=== PATIENT | female | born 2000 | race Caucasian/White ===

== ENCOUNTER 2024-05-01 18:34 | Inpatient (IN) | payer BC ==
[2024-05-01] MEDS ORDERED: Acetaminophen 500 MG TAB ONE (19:39)
[2024-05-01] MEDS ORDERED: Sodium Chloride 0.9% 100 ML ONE (19:39)
[2024-05-01] MEDS ORDERED: cefTRIAXone (ROCEPHIN) 2 GM VIAL ONE (19:39)
[2024-05-01 20:07] LABS: #Basophils 0.05 10x3/uL (0.0-0.2); %Basophils 0.5 % (0.0-1.0); %Eosinophils 0.3 % (0.0-10.0); %Lymphocytes 16.5 % (21.0-51.0); %Monocytes 6.4 % (0.0-10.0); Hemoglobin 10.4 g/dL (12.0-16.0); Mean Corpuscular HGB CONC 33.5 g/dL (32.0-36.0); Mean Corpuscular Volume 92.3 fL (78.0-98.0); Mean Platelet Volume 8.5 fL (7.4-10.4); Platelet Count 267 10x3/uL (130-400); RBC Distribution Width 13.8 % (11.5-14.5); Red Blood Cell (RBC) Count 3.36 mill/uL (4.20-5.40)
[2024-05-01 20:09] LABS: Pregnancy Test - Urine (BHCG) Negative (Negative); Pregu Control Background? CLEAR/WHITE (CLR/WHITE); Pregu Control Bar Appear? YES (CONTROL BAR); Specific Gravity 1.019 (1.002-1.036)
[2024-05-01 20:11] LABS: Bacteria/HPF 4+ HPF (None Seen); Bilirubin Negative (Negative); Blood, Urine Negative (Negative); CAUTI Indications for Culture Pelvic or flank pain; Clarity Clear (Clear); Glucose, Urine (Dipstick) Normal (Negative); Ketone, Urine 10 mg/dL (Negative); Leukocyte 75 Leu/uL (Negative); Nitrite 2+ (Negative); Protein, Urine (Dipstick) 10 mg/dL (Neg-Trace); RBC/HPF 0-3 HPF (0-3); Specific Gravity, Urine 1.019 (1.002-1.036); Urobilinogen Normal mg/dL (Less than 2); WBC/HPF 21-50 HPF (0-3); pH, Urine 5.5 (5.0-9.0)
[2024-05-01 20:14] LABS: Urine Culture Reflex Yes Yes
[2024-05-01 20:24] LABS: ALT (SGPT) 8 U/L (8-55); AST (SGOT) 17 U/L (5-34); Albumin 4.3 g/dL (3.5-5.0); Alkaline Phosphatase 57 U/L (40-110); Anion Gap 15 mmol/L (10-20); BUN (Urea Nitrogen) 21 mg/dL (7.0-18.7); Bilirubin, Total 1.3 mg/dL (0.2-1.2); Calc. Creatinine Clearance 0 mL/min (70-130); Calcium 9.4 mg/dL (7.8-10.44); Carbon Dioxide 18 mmol/L (22-29); Chloride 107 mmol/L (98-107); Estimated GFR 47; Globulin 3.9 g/dL (2.4-3.5); Glucose 88 mg/dL (70-105); Potassium 4.7 mmol/L (3.5-5.1); Protein, Total 8.2 g/dL (6.0-8.3); Sodium 135 mmol/L (136-145)
[2024-05-01] MEDS ORDERED: Morphine 4 MG/ML VIAL ONE (21:24)
[2024-05-01] MEDS ORDERED: Ondansetron PF 4 MG/2 ML Vial ONE (21:24)
[2024-05-02 00:36] VITALS: BMI 26.9
[2024-05-02] MEDS ORDERED: Acetaminophen 650 MG Suppository PR PRN ×2 (01:02→05:47)
[2024-05-02] MEDS ORDERED: SUMAtriptan Succinate 50 MG TAB PO PRN (01:04)
[2024-05-02] MEDS: Ondansetron PF 4 MG/2 ML Vial ONE (01:10)
[2024-05-02] MEDS: Acetaminophen 325 MG TAB ONE ×2 (01:15→06:38)
[2024-05-02] MEDS: Cefepime 1 GM in Sodium Chloride 0.9% 100 ML IVPB SCH (02:17)
[2024-05-02] MEDS: Sodium Chloride 0.9% 1,000 ML IV SCH (02:17)
[2024-05-02 04:48] LABS: #Basophils 0.04 10x3/uL (0.0-0.2); #Eosinphils Less than 0.03 10x3/uL (0.0-0.7); %Basophils 0.5 % (0.0-1.0); %Eosinophils 0.1 % (0.0-10.0); %Lymphocytes 11.6 % (21.0-51.0); %Monocytes 9.4 % (0.0-10.0); %Neutrophils 78.1 % (42.0-75.0); Hematocrit 28.3 % (36.0-47.0); Hemoglobin 9.4 g/dL (12.0-16.0); Mean Corpuscular HGB CONC 33.2 g/dL (32.0-36.0); Mean Corpuscular Hemoglobin 31.2 pg (27.0-31.0); Mean Platelet Volume 8.7 fL (7.4-10.4); Platelet Count 222 10x3/uL (130-400); RBC Distribution Width 13.8 % (11.5-14.5); Red Blood Cell (RBC) Count 3.01 mill/uL (4.20-5.40)
[2024-05-02 05:14] LABS: Influenza A by NAA Not Detected (NotDetected); Influenza B by NAA Not Detected (NotDetected); SARS-CoV-2 NAA Rapid Test Not Detected (NotDetected)
[2024-05-02 05:45] LABS: Anion Gap 12 mmol/L (10-20); BUN (Urea Nitrogen) 21 mg/dL (7.0-18.7); Calc. Creatinine Clearance 64 mL/min (70-130); Calcium 8.2 mg/dL (7.8-10.44); Carbon Dioxide 18 mmol/L (22-29); Chloride 111 mmol/L (98-107); Estimated GFR 44; Glucose 110 mg/dL (70-105); Magnesium 1.7 mg/dL (1.6-2.6); Potassium 4.3 mmol/L (3.5-5.1); Sodium 137 mmol/L (136-145)
[2024-05-02] MEDS: Ondansetron PF 4 MG/2 ML Vial IVP PRN (06:33)
[2024-05-02] MEDS: Acetaminophen 325 MG TAB PO PRN (06:37)
[2024-05-02] MEDS: Heparin 5,000 UNITS/ML VIAL SC SCH (08:34)
[2024-05-02] MEDS: Sodium Bicarbonate Tab 325 MG TAB PO SCH (08:35)
[2024-05-02] MEDS: Amlodipine 5 MG TAB PO SCH (08:35)
[2024-05-02] MEDS: Magnesium Oxide 400 MG TAB PO SCH (08:35)
[2024-05-02] MEDS: Aspirin 81 mg Enteric Coated Tablet PO SCH (08:35)
[2024-05-02] MEDS: predniSONE 5 MG TAB PO SCH (08:36)
[2024-05-02] MEDS: Pantoprazole DR 40 MG TAB PO SCH (08:36)
[2024-05-02] MEDS ORDERED: Ondansetron ODT 4 MG TAB PO PRN (15:38)
[2024-05-02] MEDS: RIBOFLAVIN 100 MG PO SCH (18:09)
[2024-05-02] MEDS: TACROLIMUS 4 MG PO SCH (18:09)
[2024-05-02] MEDS ORDERED: NORETHINDRONE 0.35 MG PO SCH (21:00)
[2024-05-03 06:12] LABS: Anion Gap 10 mmol/L (10-20); BUN (Urea Nitrogen) 13 mg/dL (7.0-18.7); Calc. Creatinine Clearance 73 mL/min (70-130); Calcium 8.5 mg/dL (7.8-10.44); Carbon Dioxide 20 mmol/L (22-29); Chloride 112 mmol/L (98-107); Estimated GFR 51; Glucose 95 mg/dL (70-105); Magnesium 1.8 mg/dL (1.6-2.6); Potassium 4.7 mmol/L (3.5-5.1); Sodium 137 mmol/L (136-145)
[2024-05-03 06:25] LABS: #Basophils 0.03 10x3/uL (0.0-0.2); %Basophils 0.5 % (0.0-1.0); %Eosinophils 0.8 % (0.0-10.0); %Lymphocytes 23.4 % (21.0-51.0); Hematocrit 26.9 % (36.0-47.0); Hemoglobin 8.8 g/dL (12.0-16.0); Mean Corpuscular HGB CONC 32.7 g/dL (32.0-36.0); Mean Corpuscular Hemoglobin 31.2 pg (27.0-31.0); Mean Corpuscular Volume 95.4 fL (78.0-98.0); Mean Platelet Volume 8.9 fL (7.4-10.4); Platelet Count 190 10x3/uL (130-400); RBC Distribution Width 13.7 % (11.5-14.5); Red Blood Cell (RBC) Count 2.82 mill/uL (4.20-5.40)
[2024-05-03 12:08] VITALS: BP 121/81; TEMP 97.9
[2024-05-05 17:39] LABS: Tacrolimus 7.4 ng/mL (2.0-20.0)
== END 2024-05-03 12:19 | disposition home or self-care (01) | DRG 872 ==
LOC: ERS 18:34 → T4-A 23:32 → OBSVTOIN 05-02 15:06
PROVIDERS: ADMIT Internal Medicine; ATTEND Family Medicine
DX: A41.51 Sepsis due to Escherichia coli [E. coli] (principal); N17.9 Acute kidney failure, unspecified; T86.99 Other complications of unspecified transplanted organ and tissue; E87.20 Acidosis, unspecified; N39.0 Urinary tract infection, site not specified; G40.909 Epilepsy, unspecified, not intractable, without status epilepticus; I12.9 Hypertensive chronic kidney disease with stage 1 through stage 4 chronic kidney disease, or unspecified chronic kidney disease; D63.8 Anemia in other chronic diseases classified elsewhere; N18.30 Chronic kidney disease, stage 3 unspecified; Z92.25 Personal history of immunosuppression therapy
CPT/HCPCS: 36415; 80048; 80053; 80197; 81001; 81025; 83605; 83735; 85025; 87040; 87077; 87086; 87186; 96375; 96376; G0378; J0692; J0696; J2272; J2405; J7030; J7512

== ENCOUNTER 2024-07-13 04:08 | Inpatient (IN) | payer BC ==
[2024-07-13] MEDS ORDERED: Morphine 4 MG/ML VIAL ONE (04:30)
[2024-07-13] MEDS ORDERED: Ondansetron PF 4 MG/2 ML Vial ONE (04:31)
[2024-07-13 05:22] LABS: Mean Corpuscular HGB CONC 33.5 g/dL (32.0-36.0)
[2024-07-13 05:23] LABS: #Basophils 0.03 10x3/uL (0.0-0.2); #Eosinophils Less than 0.03 10x3/uL (0.0-0.7); %Basophils 0.3 % (0.0-1.0); %Lymphocytes 8.1 % (21.0-51.0); %Monocytes 5.3 % (0.0-10.0); %Neutrophils 85.9 % (42.0-75.0); Hematocrit 36.4 % (36.0-47.0); Hemoglobin 12.2 g/dL (12.0-16.0); Mean Corpuscular Hemoglobin 30.5 pg (27.0-31.0); Mean Platelet Volume 9.5 fL (7.4-10.4); Platelet Count 129 10x3/uL (130-400)
[2024-07-13 05:29] LABS: BHCG - Serum Negative (NEGATIVE); Pregs Control Background? CLEAR/WHITE (CLR/WHITE); Pregs Control Bar Appear? YES (CONTROL BAR)
[2024-07-13 05:36] LABS: ALT (SGPT) 10 U/L (8-55); AST (SGOT) 18 U/L (5-34); Albumin 3.7 g/dL (3.5-5.0); Alkaline Phosphatase 53 U/L (40-110); Anion Gap 14 mmol/L (10-20); BUN (Urea Nitrogen) 29 mg/dL (7.0-18.7); Bilirubin, Total 0.6 mg/dL (0.2-1.2); Calc. Creatinine Clearance 0 mL/min (70-130); Calcium 9.6 mg/dL (7.8-10.44); Carbon Dioxide 16 mmol/L (22-29); Chloride 110 mmol/L (98-107); Estimated GFR 42; Globulin 3.9 g/dL (2.4-3.5); Glucose 122 mg/dL (70-105); Potassium 4.5 mmol/L (3.5-5.1); Protein, Total 7.6 g/dL (6.0-8.3); Sodium 135 mmol/L (136-145)
[2024-07-13 05:44] LABS: Bacteria/HPF 4+ HPF (None Seen); Bilirubin Negative (Negative); Blood, Urine Negative (Negative); CAUTI Indications for Culture Pelvic or flank pain; Clarity Clear (Clear); Glucose, Urine (Dipstick) Normal (Negative); Ketone, Urine Negative (Negative); Leukocyte 25 Leu/uL (Negative); Nitrite Negative (Negative); Protein, Urine (Dipstick) Negative (Neg-Trace); RBC/HPF 0-3 HPF (0-3); Specific Gravity, Urine 1.014 (1.002-1.036); Urobilinogen Normal mg/dL (Less than 2)
[2024-07-13 05:49] LABS: Urine Culture Reflex Yes Yes
[2024-07-13] MEDS ORDERED: Promethazine HCl 25 MG/ML VIAL ONE (06:12)
[2024-07-13] MEDS ORDERED: Acetaminophen 500 MG TAB ONE (06:23)
[2024-07-13] MEDS ORDERED: Sodium Bicarb 50 MEQ/50 ML Abboject 8.4% SYRINGE ONE (07:04)
[2024-07-13] MEDS ORDERED: cefTRIAXone (ROCEPHIN) 1 GM VIAL ONE (07:04)
[2024-07-13] MEDS ORDERED: Sodium Chloride 0.9% 100 ML ONE (07:04)
[2024-07-13] MEDS ORDERED: cefTRIAXone (ROCEPHIN) 2 GM VIAL ONE (07:06)
[2024-07-13] MEDS: Lactated Ringer's 1,000 ML IV SCH (08:25)
[2024-07-13] MEDS ORDERED: Acetaminophen 650 MG Suppository PR PRN (09:07)
[2024-07-13] MEDS ORDERED: Senokot S 8.6-50 MG TAB PO PRN (09:07)
[2024-07-13] MEDS ORDERED: Ondansetron ODT 4 MG TAB PO PRN (09:07)
[2024-07-13] MEDS ORDERED: Methocarbamol 500 MG TAB PO PRN (09:09)
[2024-07-13 09:33] VITALS: BMI 28.0
[2024-07-13] MEDS: Aspirin 81 mg Enteric Coated Tablet PO SCH (10:33)
[2024-07-13] MEDS: Amlodipine 5 MG TAB PO SCH (10:33)
[2024-07-13] MEDS: Sodium Bicarbonate Tab 325 MG TAB PO SCH ×2 (10:33→19:50)
[2024-07-13] MEDS: Magnesium Oxide 400 MG TAB PO SCH (10:33)
[2024-07-13] MEDS: Sodium Chloride 0.9% 1,000 ML IV SCH (10:33)
[2024-07-13] MEDS: predniSONE 5 MG TAB PO SCH (10:34)
[2024-07-13] MEDS: Sodium Bicarbonate 150 MEQ in Dextrose 5% in Water 1,000 ML IV SCH (12:25)
[2024-07-13] MEDS: Acetaminophen 325 MG TAB PO PRN (14:47)
[2024-07-13] MEDS: Ondansetron PF 4 MG/2 ML Vial IVP PRN (19:22)
[2024-07-13] MEDS: Acetaminophen 325 MG TAB PO SCH (19:50)
[2024-07-13] MEDS ORDERED: NORETHINDRONE 0.35 MG PO SCH (21:00)
[2024-07-13] MEDS ORDERED: NORETHINDRONE PO SCH (21:00)
[2024-07-13] MEDS: Morphine 2 MG/ML VIAL SLOW IVP SCH (21:32)
[2024-07-14] MEDS: Promethazine HCl 12.5 MG in Sodium Chloride 0.9% 50 ML IVPB SCH
[2024-07-14 06:14] LABS: #Basophils 0.03 10x3/uL (0.0-0.2); #Eosinophils Less than 0.03 10x3/uL (0.0-0.7); %Basophils 0.3 % (0.0-1.0); %Lymphocytes 12.5 % (21.0-51.0); %Monocytes 11.7 % (0.0-10.0); %Neutrophils 75.1 % (42.0-75.0); Hematocrit 28.8 % (36.0-47.0); Hemoglobin 9.9 g/dL (12.0-16.0); Mean Corpuscular HGB CONC 34.4 g/dL (32.0-36.0); Mean Corpuscular Volume 90.3 fL (78.0-98.0); Mean Platelet Volume 8.7 fL (7.4-10.4); Platelet Count 182 10x3/uL (130-400); RBC Distribution Width 12.8 % (11.5-14.5); Red Blood Cell (RBC) Count 3.19 mill/uL (4.20-5.40)
[2024-07-14 06:55] LABS: Anion Gap 12 mmol/L (10-20); BUN (Urea Nitrogen) 14 mg/dL (7.0-18.7); Calc. Creatinine Clearance 65 mL/min (70-130); Calcium 7.9 mg/dL (7.8-10.44); Carbon Dioxide 23 mmol/L (22-29); Chloride 100 mmol/L (98-107); Estimated GFR 42; Glucose 125 mg/dL (70-105); Potassium 3.9 mmol/L (3.5-5.1); Sodium 131 mmol/L (136-145)
[2024-07-14] MEDS ORDERED: TACROLIMUS 4 MG PO SCH (07:30)
[2024-07-14] MEDS ORDERED: Methocarbamol 500 MG TAB PO SCH (09:00)
[2024-07-14] MEDS: Magnesium Oxide 400 MG TAB PO SCH (09:41)
[2024-07-14] MEDS: cefTRIAXone\\ROCEPHIN 1 GM in Sodium Chloride 0.9% 100 ML IVPB SCH (09:41)
[2024-07-14] MEDS: Amlodipine 5 MG TAB PO SCH (09:42)
[2024-07-14] MEDS: Pantoprazole DR 40 MG TAB PO SCH (09:42)
[2024-07-14] MEDS: Aspirin 81 mg Enteric Coated Tablet PO SCH (09:42)
[2024-07-14] MEDS: predniSONE 5 MG TAB PO SCH (09:42)
[2024-07-14] MEDS: Sodium Chloride 0.9% 1,000 ML IV SCH (12:07)
[2024-07-15] MEDS: TACROLIMUS PO SCH (00:55)
[2024-07-15 07:42] LABS: #Basophils 0.04 10x3/uL (0.0-0.2); %Basophils 0.6 % (0.0-1.0); %Eosinophils 1.6 % (0.0-10.0); %Lymphocytes 20.5 % (21.0-51.0); Hematocrit 29.4 % (36.0-47.0); Hemoglobin 9.6 g/dL (12.0-16.0); Mean Corpuscular HGB CONC 32.7 g/dL (32.0-36.0); Mean Corpuscular Hemoglobin 30.9 pg (27.0-31.0); Mean Corpuscular Volume 94.5 fL (78.0-98.0); Mean Platelet Volume 9.1 fL (7.4-10.4); Platelet Count 189 10x3/uL (130-400); RBC Distribution Width 13.1 % (11.5-14.5); Red Blood Cell (RBC) Count 3.11 mill/uL (4.20-5.40)
[2024-07-15 08:08] LABS: Anion Gap 11 mmol/L (10-20); BUN (Urea Nitrogen) 16 mg/dL (7.0-18.7); Calc. Creatinine Clearance 87 mL/min (70-130); Calcium 8.4 mg/dL (7.8-10.44); Carbon Dioxide 21 mmol/L (22-29); Chloride 111 mmol/L (98-107); Estimated GFR 60; Glucose 106 mg/dL (70-105); Potassium 4.1 mmol/L (3.5-5.1); Sodium 139 mmol/L (136-145)
[2024-07-15] MEDS: RIBOFLAVIN 100 MG PO SCH (09:30)
[2024-07-15] MEDS: Meropenem 1 GM in Sodium Chloride 0.9% 100 ML IVPB SCH ×2 (12:16→20:14)
[2024-07-15] MEDS ORDERED: Sodium Bicarbonate 2.5 MEQ/5 ML SDV ONE (13:27)
[2024-07-15] MEDS ORDERED: Lidocaine 1% PF 5 ML VIAL ONE (13:27)
[2024-07-16 10:24] LABS: Anion Gap 13 mmol/L (10-20); BUN (Urea Nitrogen) 17 mg/dL (7.0-18.7); Calc. Creatinine Clearance 87 mL/min (70-130); Calcium 8.9 mg/dL (7.8-10.44); Carbon Dioxide 21 mmol/L (22-29); Chloride 112 mmol/L (98-107); Estimated GFR 60; Glucose 78 mg/dL (70-105); Potassium 4.4 mmol/L (3.5-5.1); Sodium 142 mmol/L (136-145)
[2024-07-16 16:10] VITALS: BP 149/80; TEMP 98.1
[2024-07-17 23:37] LABS: Tacrolimus 4.8 ng/mL (2.0-20.0)
== END 2024-07-16 17:26 | disposition home or self-care (01) | DRG 872 ==
LOC: ERS 04:08 → T4-B 08:17 → OBSVTOIN 07-14 10:34
PROVIDERS: ADMIT Internal Medicine; ATTEND Family Medicine
PROC: 02HV33Z Insertion of Infusion Device into Superior Vena Cava, Percutaneous Approach (ICD-10-PCS; principal; 2024-07-15)
PROC: B518ZZA Fluoroscopy of Superior Vena Cava, Guidance (ICD-10-PCS; 2024-07-15)
PROC: B548ZZA Ultrasonography of Superior Vena Cava, Guidance (ICD-10-PCS; 2024-07-15)
DX: A41.59 Other Gram-negative sepsis (principal); N10 Acute pyelonephritis; N17.9 Acute kidney failure, unspecified; Z94.0 Kidney transplant status; E87.1 Hypo-osmolality and hyponatremia; E87.20 Acidosis, unspecified; B96.1 Klebsiella pneumoniae [K. pneumoniae] as the cause of diseases classified elsewhere; D64.9 Anemia, unspecified; I12.9 Hypertensive chronic kidney disease with stage 1 through stage 4 chronic kidney disease, or unspecified chronic kidney disease; G43.909 Migraine, unspecified, not intractable, without status migrainosus; N18.30 Chronic kidney disease, stage 3 unspecified; Z88.1 Allergy status to other antibiotic agents
CPT/HCPCS: 36415; 36572; 74176; 80048; 80053; 80197; 81001; 83605; 84145; 84703; 85025; 87040; 87077; 87086; 87186; 96367; 96374; 96375; 96376; C1751; G0378; J0696; J2185; J2272; J2405; J2550; J7030; J7070; J7120; J7512